=== PATIENT | male | born 1955 | race Two or more races ===

== ENCOUNTER → 2017-03-30 | Outpatient (CLI) | payer OTHER ==
--- NOTE | 2017-03-31 08:59 | RADRPT ---
PROCEDURE: XR Right hip and pelvis. CLINICAL INDICATION: Right hip pain and pelvic pain. TECHNIQUE: 3 views. Frontal pelvis. Frontal and lateral right hip. COMPARISON: None. FINDINGS: There is no fracture or dislocation. The soft tissues are normal. There are degenerative changes of both hips with osteophytes, joint space narrowing, and subarticula r sclerosis. Right is slightly worse than left. There is no lytic or blastic lesion. The upper pelvis is not included on the images. IMPRESSION: 1. Moderate degenerative changes of both hips with right worse than left. 2. Cough with pelvis not included on the images. 3. Otherwise unremarkable study. RPTAT: QQ .Vikas Sauceda MD, MD Date Time Electronically viewed and signed by .Vikas Sauceda MD, on 03/31/2017 08:59 .R/
== END | disposition home or self-care (01) ==
LOC: HKI 15:31
PROVIDERS: ATTEND Orthopaedic Surgery
DX: M16.0 Bilateral primary osteoarthritis of hip (principal)
CPT/HCPCS: 73502; G0463